=== PATIENT | male | born 1955 | race Caucasian/White ===

== ENCOUNTER 2021-07-29 18:44 | Inpatient (IN) ==
[2021-07-30] MEDS ORDERED: NON-FORMULARY MEDICATION 1 EACH EACH (Clonazepam [Clonazepam] 0.5 MG Tablet) PO PRN (15:20)
[2021-07-30] MEDS ORDERED: Ipratropium/Albuterol Neb 3 ML IH PRN (17:18)
[2021-07-30] MEDS: Gabapentin 300 MG CAPSULE PO SCH (20:40)
[2021-07-30] MEDS: *HR* OxyCODONE/APAP 5/325 TABLET PO PRN (20:40)
[2021-07-30] MEDS: OLANZapine 5 MG TAB.RAPDIS PO SCH (20:40)
[2021-07-30] MEDS: Mirtazapine 15 MG TABLET PO SCH (20:40)
[2021-07-30] MEDS ORDERED: Insulin NPH/REG 70/30 300 UNIT/3 ML per UNIT SUBQ ONE (21:00)
[2021-07-30] MEDS: Budesonide/Formoterol 160/4.5 1 PUFF INH IH SCH (22:43)
[2021-07-31] MEDS: *HR* OxyCODONE/APAP 5/325 TABLET PO PRN (04:45)
[2021-07-31] MEDS ORDERED: *HR* Pioglitazone 45 MG TABLET PO SCH (08:00)
[2021-07-31] MEDS: Multivit/Ca/Min/Fe/FA 1 TAB TABLET PO SCH (08:30)
[2021-07-31] MEDS: Ascorbic Acid 500 MG TABLET PO SCH (08:30)
[2021-07-31] MEDS: Cholecalciferol (D-3) 1,000 UNIT (25MCG) TABLET PO SCH (08:30)
[2021-07-31] MEDS: Gabapentin 300 MG CAPSULE PO SCH ×3 (08:30→20:18)
[2021-07-31] MEDS: Zinc Sulfate 220 MG CAPSULE PO SCH (08:31)
[2021-07-31] MEDS: Insulin NPH/REG 70/30 100 UNIT/ML (x5UNIT) SUBQ SCH ×2 (08:31→21:37)
[2021-07-31] MEDS: *HR* Glimepiride 4 MG TABLET PO SCH ×2 (08:31→16:57)
[2021-07-31] MEDS ORDERED: Aspirin 81 MG TAB.CHEW PO SCH (09:00)
[2021-07-31] MEDS ORDERED: NON-FORMULARY MEDICATION 1 EACH EACH (Metoprolol Succinate [Toprol Xl] 100 MG Tab.Er.24h) PO SCH (09:00)
[2021-07-31] MEDS: *HR* OxyCODONE/APAP 10/325 TABLET PO PRN ×4 (09:18→21:03)
[2021-07-31] MEDS: Folic Acid 1 MG TABLET PO SCH (09:18)
[2021-07-31] MEDS: Budesonide/Formoterol 160/4.5 1 PUFF INH IH SCH ×2 (10:09→20:46)
[2021-07-31] MEDS: Tiotropium 10 INH DOSE IH SCH (10:12)
[2021-07-31] MEDS: clonazePAM 0.5 MG TABLET PO SCH (20:15)
[2021-07-31] MEDS: Mirtazapine 15 MG TABLET PO SCH (20:16)
[2021-07-31] MEDS: OLANZapine 5 MG TAB.RAPDIS PO SCH (20:16)
[2021-08-01] MEDS: Insulin NPH/REG 70/30 100 UNIT/ML (x5UNIT) SUBQ SCH ×2 (08:54→22:48)
[2021-08-01] MEDS: Folic Acid 1 MG TABLET PO SCH (09:04)
[2021-08-01] MEDS: Ascorbic Acid 500 MG TABLET PO SCH (09:04)
[2021-08-01] MEDS: Cholecalciferol (D-3) 1,000 UNIT (25MCG) TABLET PO SCH (09:04)
[2021-08-01] MEDS: Multivit/Ca/Min/Fe/FA 1 TAB TABLET PO SCH (09:05)
[2021-08-01] MEDS: *HR* OxyCODONE/APAP 10/325 TABLET PO PRN ×3 (09:05→22:57)
[2021-08-01] MEDS: Zinc Sulfate 220 MG CAPSULE PO SCH (09:05)
[2021-08-01] MEDS: *HR* Glimepiride 4 MG TABLET PO SCH ×2 (09:06→17:13)
[2021-08-01] MEDS: Gabapentin 300 MG CAPSULE PO SCH ×3 (09:06→20:31)
[2021-08-01] MEDS: Budesonide/Formoterol 160/4.5 1 PUFF INH IH SCH ×2 (09:53→22:59)
[2021-08-01] MEDS: Tiotropium 10 INH DOSE IH SCH (09:53)
[2021-08-01] MEDS: OLANZapine 5 MG TAB.RAPDIS PO SCH (20:29)
[2021-08-01] MEDS: clonazePAM 0.5 MG TABLET PO SCH (20:33)
[2021-08-01] MEDS: Mirtazapine 15 MG TABLET PO SCH (20:33)
[2021-08-02] MEDS: *HR* Enoxaparin 40 MG/0.4 ML SYRINGE SQ SCH (06:02)
[2021-08-02] MEDS: *HR* OxyCODONE/APAP 10/325 TABLET PO PRN ×3 (06:05→20:35)
[2021-08-02] MEDS: Cholecalciferol (D-3) 1,000 UNIT (25MCG) TABLET PO SCH (07:48)
[2021-08-02] MEDS: Multivit/Ca/Min/Fe/FA 1 TAB TABLET PO SCH (07:48)
[2021-08-02] MEDS: Gabapentin 300 MG CAPSULE PO SCH ×3 (07:49→20:36)
[2021-08-02] MEDS: *HR* Glimepiride 4 MG TABLET PO SCH ×2 (07:49→17:04)
[2021-08-02] MEDS: Zinc Sulfate 220 MG CAPSULE PO SCH (07:50)
[2021-08-02] MEDS: Ascorbic Acid 500 MG TABLET PO SCH (07:50)
[2021-08-02] MEDS: Folic Acid 1 MG TABLET PO SCH (07:51)
[2021-08-02] MEDS: Insulin NPH/REG 70/30 100 UNIT/ML (x5UNIT) SUBQ SCH ×2 (08:52→20:21)
[2021-08-02] MEDS: Tiotropium 10 INH DOSE IH SCH (10:09)
[2021-08-02] MEDS: Budesonide/Formoterol 160/4.5 1 PUFF INH IH SCH ×2 (10:09→21:16)
[2021-08-02] MEDS: OLANZapine 5 MG TAB.RAPDIS PO SCH (20:34)
[2021-08-02] MEDS: clonazePAM 0.5 MG TABLET PO SCH (20:36)
[2021-08-02] MEDS: Mirtazapine 15 MG TABLET PO SCH (20:36)
[2021-08-03] MEDS: *HR* OxyCODONE/APAP 10/325 TABLET PO PRN ×4 (01:15→22:02)
[2021-08-03] MEDS: *HR* Enoxaparin 40 MG/0.4 ML SYRINGE SQ SCH (06:55)
[2021-08-03 06:58] LABS: Basophils % 0.3 %; Eosinophils # 0.1 K/mcL (0.0-0.6); Eosinophils % 1.7 %; Hematocrit 30.3 % (37.5-50.1); Hemoglobin 10.3 g/dL (12.9-16.9); Immature Granulocytes % 0.5 % (0-4); Lymphocytes # 2.3 K/mcL (0.6-4.6); Lymphocytes % 34.6 %; Mean Corpuscular Volume 94.1 fL (83.0-100.0); Mean Platelet Volume 9.2 fL (9.4-12.4); Monocytes # 0.9 K/mcL (0.0-1.3); Monocytes % 14.3 %; Neutrophils # 3.2 K/mcL (1.6-8.9); Platelet Count 231 K/mcL (140-400); Red Blood Count 3.22 M/mcL (4.19-5.50); Red Cell Distribution Width 14.1 % (11.5-14.5); Segmented Neutrophils % 48.6 %; White Blood Count 6.6 K/mcL (4.3-11.1)
[2021-08-03 07:12] LABS: BUN/Creatinine Ratio 17 (6-26); Blood Urea Nitrogen 11 mg/dL (8-23); Calcium 8.7 mg/dL (8.6-10.3); Carbon Dioxide 31 mEq/L (23-29); Chloride 95 mEq/L (98-107); Glucose 124 mg/dL (70-105); Osmolality,Calculated 277 (280-300); Potassium 4.2 mEq/L (3.5-5.1); Sodium 133 mEq/L (136-145); eGFR For African Americans > 60 (> 60); eGFR For Non-African Americans > 60 (> 60)
[2021-08-03] MEDS: Budesonide/Formoterol 160/4.5 1 PUFF INH IH SCH ×2 (08:59→21:24)
[2021-08-03] MEDS: Tiotropium 10 INH DOSE IH SCH (08:59)
[2021-08-03] MEDS: Multivit/Ca/Min/Fe/FA 1 TAB TABLET PO SCH (09:42)
[2021-08-03] MEDS: Gabapentin 300 MG CAPSULE PO SCH ×3 (09:43→22:02)
[2021-08-03] MEDS: Cholecalciferol (D-3) 1,000 UNIT (25MCG) TABLET PO SCH (09:43)
[2021-08-03] MEDS: Folic Acid 1 MG TABLET PO SCH (09:43)
[2021-08-03] MEDS: Insulin NPH/REG 70/30 100 UNIT/ML (x5UNIT) SUBQ SCH ×2 (09:43→22:03)
[2021-08-03] MEDS: Zinc Sulfate 220 MG CAPSULE PO SCH (09:43)
[2021-08-03] MEDS: *HR* Glimepiride 4 MG TABLET PO SCH ×2 (09:43→17:41)
[2021-08-03] MEDS: Ascorbic Acid 500 MG TABLET PO SCH (09:43)
[2021-08-03] MEDS: Mirtazapine 15 MG TABLET PO SCH (22:01)
[2021-08-03] MEDS: OLANZapine 5 MG TAB.RAPDIS PO SCH (22:02)
[2021-08-03] MEDS: clonazePAM 0.5 MG TABLET PO SCH (22:02)
[2021-08-04] MEDS: *HR* OxyCODONE/APAP 10/325 TABLET PO PRN ×4 (03:27→19:31)
[2021-08-04] MEDS: *HR* Enoxaparin 40 MG/0.4 ML SYRINGE SQ SCH (05:19)
[2021-08-04] MEDS: Cholecalciferol (D-3) 1,000 UNIT (25MCG) TABLET PO SCH (08:27)
[2021-08-04] MEDS: Folic Acid 1 MG TABLET PO SCH (08:28)
[2021-08-04] MEDS: Ascorbic Acid 500 MG TABLET PO SCH (08:28)
[2021-08-04] MEDS: Zinc Sulfate 220 MG CAPSULE PO SCH (08:28)
[2021-08-04] MEDS: Gabapentin 300 MG CAPSULE PO SCH ×3 (08:28→19:30)
[2021-08-04] MEDS: *HR* Glimepiride 4 MG TABLET PO SCH ×2 (08:29→14:41)
[2021-08-04] MEDS: Multivit/Ca/Min/Fe/FA 1 TAB TABLET PO SCH (08:29)
[2021-08-04] MEDS: Insulin NPH/REG 70/30 100 UNIT/ML (x5UNIT) SUBQ SCH ×2 (08:30→19:31)
[2021-08-04] MEDS: Budesonide/Formoterol 160/4.5 1 PUFF INH IH SCH ×2 (11:28→21:10)
[2021-08-04] MEDS: Tiotropium 10 INH DOSE IH SCH (11:29)
[2021-08-04] MEDS: OLANZapine 5 MG TAB.RAPDIS PO SCH (19:30)
[2021-08-04] MEDS: Mirtazapine 15 MG TABLET PO SCH (19:30)
[2021-08-04] MEDS: clonazePAM 0.5 MG TABLET PO SCH (19:30)
[2021-08-05] MEDS: *HR* OxyCODONE/APAP 10/325 TABLET PO PRN ×4 (00:52→20:22)
[2021-08-05] MEDS: *HR* Enoxaparin 40 MG/0.4 ML SYRINGE SQ SCH (05:53)
[2021-08-05] MEDS: Gabapentin 300 MG CAPSULE PO SCH ×3 (07:30→20:22)
[2021-08-05] MEDS: Zinc Sulfate 220 MG CAPSULE PO SCH (07:30)
[2021-08-05] MEDS: Folic Acid 1 MG TABLET PO SCH (07:31)
[2021-08-05] MEDS: Cholecalciferol (D-3) 1,000 UNIT (25MCG) TABLET PO SCH (07:31)
[2021-08-05] MEDS: Multivit/Ca/Min/Fe/FA 1 TAB TABLET PO SCH (07:32)
[2021-08-05] MEDS: Ascorbic Acid 500 MG TABLET PO SCH (07:32)
[2021-08-05] MEDS: *HR* Glimepiride 4 MG TABLET PO SCH ×2 (07:32→16:19)
[2021-08-05] MEDS: Insulin NPH/REG 70/30 100 UNIT/ML (x5UNIT) SUBQ SCH ×2 (08:58→20:23)
[2021-08-05] MEDS: Tiotropium 10 INH DOSE IH SCH (09:56)
[2021-08-05] MEDS: Budesonide/Formoterol 160/4.5 1 PUFF INH IH SCH ×2 (09:57→21:57)
[2021-08-05] MEDS: Mirtazapine 15 MG TABLET PO SCH (20:22)
[2021-08-05] MEDS: OLANZapine 5 MG TAB.RAPDIS PO SCH (20:22)
[2021-08-05] MEDS: clonazePAM 0.5 MG TABLET PO SCH (20:22)
[2021-08-06] MEDS: *HR* OxyCODONE/APAP 10/325 TABLET PO PRN ×4 (00:39→19:38)
[2021-08-06] MEDS: *HR* Enoxaparin 40 MG/0.4 ML SYRINGE SQ SCH (05:52)
[2021-08-06] MEDS: *HR* Glimepiride 4 MG TABLET PO SCH ×2 (08:39→16:34)
[2021-08-06] MEDS: Multivit/Ca/Min/Fe/FA 1 TAB TABLET PO SCH (08:39)
[2021-08-06] MEDS: Insulin NPH/REG 70/30 100 UNIT/ML (x5UNIT) SUBQ SCH ×2 (08:40→19:40)
[2021-08-06] MEDS: Folic Acid 1 MG TABLET PO SCH (08:40)
[2021-08-06] MEDS: Gabapentin 300 MG CAPSULE PO SCH ×3 (08:40→19:38)
[2021-08-06] MEDS: Zinc Sulfate 220 MG CAPSULE PO SCH (08:40)
[2021-08-06] MEDS: Cholecalciferol (D-3) 1,000 UNIT (25MCG) TABLET PO SCH (08:40)
[2021-08-06] MEDS: Ascorbic Acid 500 MG TABLET PO SCH (08:40)
[2021-08-06] MEDS: Budesonide/Formoterol 160/4.5 1 PUFF INH IH SCH ×2 (09:37→21:04)
[2021-08-06] MEDS: Tiotropium 10 INH DOSE IH SCH (09:38)
[2021-08-06] MEDS: clonazePAM 0.5 MG TABLET PO SCH (19:38)
[2021-08-06] MEDS: OLANZapine 5 MG TAB.RAPDIS PO SCH (19:39)
[2021-08-06] MEDS: Mirtazapine 15 MG TABLET PO SCH (19:39)
[2021-08-07] MEDS: *HR* OxyCODONE/APAP 10/325 TABLET PO PRN ×4 (01:03→20:02)
[2021-08-07] MEDS: *HR* Enoxaparin 40 MG/0.4 ML SYRINGE SQ SCH (05:34)
[2021-08-07] MEDS: Folic Acid 1 MG TABLET PO SCH (08:03)
[2021-08-07] MEDS: *HR* Glimepiride 4 MG TABLET PO SCH ×2 (08:03→16:46)
[2021-08-07] MEDS: Cholecalciferol (D-3) 1,000 UNIT (25MCG) TABLET PO SCH (08:04)
[2021-08-07] MEDS: Zinc Sulfate 220 MG CAPSULE PO SCH (08:04)
[2021-08-07] MEDS: Gabapentin 300 MG CAPSULE PO SCH ×4 (08:04→19:59)
[2021-08-07] MEDS: Ascorbic Acid 500 MG TABLET PO SCH (08:04)
[2021-08-07] MEDS: Multivit/Ca/Min/Fe/FA 1 TAB TABLET PO SCH (08:04)
[2021-08-07] MEDS: Insulin NPH/REG 70/30 100 UNIT/ML (x5UNIT) SUBQ SCH ×2 (09:15→19:59)
[2021-08-07] MEDS: Budesonide/Formoterol 160/4.5 1 PUFF INH IH SCH ×2 (09:37→21:45)
[2021-08-07] MEDS: Tiotropium 10 INH DOSE IH SCH (09:37)
[2021-08-07] MEDS: Mirtazapine 15 MG TABLET PO SCH (19:57)
[2021-08-07] MEDS: clonazePAM 0.5 MG TABLET PO SCH (19:59)
[2021-08-07] MEDS: OLANZapine 5 MG TAB.RAPDIS PO SCH (19:59)
[2021-08-07] MEDS ORDERED: Dextrose Gel 15 GM/37.5 ML TUBE PO PRN ×2 (21:03)
[2021-08-07] MEDS ORDERED: *HR* Dextrose 50 % in Water (Syg) 50 ML SYRINGE IVP PRN (21:03)
[2021-08-07] MEDS ORDERED: D5% in Water 1,000 ML IVC PRN (21:03)
[2021-08-08] MEDS: *HR* Enoxaparin 40 MG/0.4 ML SYRINGE SQ SCH (05:37)
[2021-08-08] MEDS: *HR* OxyCODONE/APAP 10/325 TABLET PO PRN ×3 (05:41→21:18)
[2021-08-08] MEDS: Budesonide/Formoterol 160/4.5 1 PUFF INH IH SCH ×2 (08:53→22:21)
[2021-08-08] MEDS: Tiotropium 10 INH DOSE IH SCH (08:54)
[2021-08-08] MEDS: Insulin NPH/REG 70/30 100 UNIT/ML (x5UNIT) SUBQ SCH ×2 (10:54→21:21)
[2021-08-08] MEDS: Zinc Sulfate 220 MG CAPSULE PO SCH (10:58)
[2021-08-08] MEDS: Gabapentin 300 MG CAPSULE PO SCH ×3 (10:58→21:18)
[2021-08-08] MEDS: Cholecalciferol (D-3) 1,000 UNIT (25MCG) TABLET PO SCH (10:58)
[2021-08-08] MEDS: Folic Acid 1 MG TABLET PO SCH (10:59)
[2021-08-08] MEDS: *HR* Glimepiride 4 MG TABLET PO SCH ×2 (10:59→17:53)
[2021-08-08] MEDS: Ascorbic Acid 500 MG TABLET PO SCH (10:59)
[2021-08-08] MEDS: Multivit/Ca/Min/Fe/FA 1 TAB TABLET PO SCH (10:59)
[2021-08-08] MEDS: Insulin LISPRO 300 UNITS/3 ML VIAL SUBQ SCH ×4 (11:00→22:12)
[2021-08-08] MEDS: Mirtazapine 15 MG TABLET PO SCH (21:18)
[2021-08-08] MEDS: OLANZapine 5 MG TAB.RAPDIS PO SCH (21:18)
[2021-08-08] MEDS: clonazePAM 0.5 MG TABLET PO SCH (21:21)
[2021-08-09] MEDS: *HR* Enoxaparin 40 MG/0.4 ML SYRINGE SQ SCH (05:30)
[2021-08-09] MEDS: Gabapentin 300 MG CAPSULE PO SCH ×3 (07:37→20:22)
[2021-08-09] MEDS: Cholecalciferol (D-3) 1,000 UNIT (25MCG) TABLET PO SCH (07:37)
[2021-08-09] MEDS: Folic Acid 1 MG TABLET PO SCH (07:37)
[2021-08-09] MEDS: Ascorbic Acid 500 MG TABLET PO SCH (07:38)
[2021-08-09] MEDS: Zinc Sulfate 220 MG CAPSULE PO SCH (07:39)
[2021-08-09] MEDS: Multivit/Ca/Min/Fe/FA 1 TAB TABLET PO SCH (07:39)
[2021-08-09] MEDS: *HR* OxyCODONE/APAP 10/325 TABLET PO PRN ×3 (07:39→20:32)
[2021-08-09] MEDS: *HR* Glimepiride 4 MG TABLET PO SCH ×2 (07:40→17:14)
[2021-08-09] MEDS: Insulin LISPRO 300 UNITS/3 ML VIAL SUBQ SCH ×4 (07:40→20:45)
[2021-08-09] MEDS: Tiotropium 10 INH DOSE IH SCH ×2 (10:00→10:18)
[2021-08-09] MEDS: Budesonide/Formoterol 160/4.5 1 PUFF INH IH SCH ×3 (10:01→22:21)
[2021-08-09] MEDS: Insulin NPH/REG 70/30 100 UNIT/ML (x5UNIT) SUBQ SCH ×2 (10:44→21:25)
[2021-08-09] MEDS ORDERED: Lactulose Oral Soln 20 GM/30 ML UDC PO ONE ×2 (14:31→17:24)
[2021-08-09 19:31] VITALS: TEMP 97.7
[2021-08-10] MEDS: *HR* Enoxaparin 40 MG/0.4 ML SYRINGE SQ SCH (05:45)
[2021-08-10 06:49] VITALS: BP 127/82; PULSE 90; RESP 18; O2SAT 98
[2021-08-10] MEDS: Insulin LISPRO 300 UNITS/3 ML VIAL SUBQ SCH ×2 (08:45→11:55)
[2021-08-10] MEDS: Zinc Sulfate 220 MG CAPSULE PO SCH (08:46)
[2021-08-10] MEDS: Cholecalciferol (D-3) 1,000 UNIT (25MCG) TABLET PO SCH (08:46)
[2021-08-10] MEDS: Gabapentin 300 MG CAPSULE PO SCH (08:47)
[2021-08-10] MEDS: *HR* Glimepiride 4 MG TABLET PO SCH (08:47)
[2021-08-10] MEDS: Ascorbic Acid 500 MG TABLET PO SCH (08:47)
[2021-08-10] MEDS: Folic Acid 1 MG TABLET PO SCH (08:48)
[2021-08-10] MEDS: Multivit/Ca/Min/Fe/FA 1 TAB TABLET PO SCH (08:48)
[2021-08-10] MEDS: Insulin NPH/REG 70/30 100 UNIT/ML (x5UNIT) SUBQ SCH (08:58)
[2021-08-10] MEDS: *HR* OxyCODONE/APAP 10/325 TABLET PO PRN (08:59)
[2021-08-10] MEDS: Tiotropium 10 INH DOSE IH SCH (10:35)
[2021-08-10] MEDS: Budesonide/Formoterol 160/4.5 1 PUFF INH IH SCH (10:35)
== END 2021-08-10 16:55 | disposition home health service (06) | DRG 935 ==
LOC: INPPIK 07-30 19:20
PROVIDERS: ADMIT Internal Medicine; ATTEND Internal Medicine